=== PATIENT | female | born 1970 | race American Indian/Alaskan Native ===

== ENCOUNTER 2021-02-12 22:51 | Emergency (ER) | payer SELFPAY ==
[2021-02-13] MEDS ORDERED: LACTATED RINGERS 1,000 ML IV ONE (00:41)
--- NOTE | 2021-02-13 00:41 | Emergency Department Report ---
ED General Adult HPI - General Chief complaint: Syncope Stated complaint: SYNCOPE PUI?: No Time Seen by Provider: 02/13/21 00:35 Source: patient, EMS ( EMS documentation not available at time of chart dictation ), RN notes reviewed, old records reviewed Mode of arrival: Stretcher Limitations: No Limitations - History of Present Illness Initial comments: The patient was evaluated in the emergency department for symptoms described in the history of present illness. He/she was evaluated in the context of the global COVID-19 pandemic, which necessitated consideration that the patient might be at risk for infection with the virus that causes COVID-19. Institutional protocols and algorithms that pertain to the evaluation of patients at risk for COVID-19 are in a state of rapid change based on information released by regulatory bodies including the CDC and federal and state organizations. These policies and algorithms were followed during the patient's care in the emergency department. Please note that these policies, procedures and recommendations changed on a rapid basis. The patient is a 50-year-old female. She is not known to myself previously. The patient presents to the ER today with a complaint of syncope/loss of consciousness. The patient states that she was at work, and had completed a vigorous defecation/bowel movement. She reports that shortly after getting up from having a bowel movement, she felt dizzy, lightheaded, and "I fell out." The patient reports that she was at work, and that she fell and hit her head. She does not recall falling or hitting her head. Prior to the event, the patient endorses sinus pressure and pain, but denies severe headache, neck pain, chest pain, abdominal pain, shortness of breath. She denies rectal bleeding, and profuse vaginal bleeding. She consumes cigarettes recreationally, and occasionally consumes marijuana edibles. She states that she has a local primary care doctor, who recently put her on prednisone burst, and albuterol, for "asthma and bronchitis." She denies a personal/family history of DVT and pulmonary embolism. Her father had a history of heart disease. Brother and sister have noncontributory past medical history. Patient states that she has had episodes like this in the past, associated with defecation. She states that she feels back to her baseline at this time. Patient denies travel, surgery, immobilization, oral contraceptive use, , DVT and pulmonary embolism risk factors. -: Sudden Consistency: now resolved Improves with: none Worsens with: other (Defecation) - Related Data Previous Rx's Medication Instructions Recorded Last Taken Type Acetaminophen [Non-Aspirin Extra 500 mg PO Q6HR PRN #30 tablet 02/13/21 Unknown Rx Strength] Fluticasone [Flonase] 1 spray NS QDAY #1 bottle 02/13/21 Unknown Rx Ibuprofen [Motrin] 600 mg PO Q8H PRN #30 tablet 02/13/21 Unknown Rx Metoclopramide [Reglan] 10 mg PO QID PRN #30 tablet 02/13/21 Unknown Rx Allergies Allergy/AdvReac Type Severity Reaction Status Date / Time No Known Allergies Allergy Verified 02/12/21 23:58 ED Review of Systems ROS: Stated complaint: SYNCOPE Other details as noted in HPI Constitutional: denies: diaphoresis Eyes: denies: eye discharge, vision change ENT: denies: epistaxis Respiratory: denies: cough Cardiovascular: syncope. denies: chest pain Gastrointestinal: nausea. denies: abdominal pain, hematemesis, melena, hematochezia Genitourinary: denies: dysuria Neurological: headache. denies: weakness, numbness, paresthesias Psychiatric: denies: anxiety Hematological/Lymphatic: denies: easy bleeding ED Past Medical Hx - Past Medical History Hx Asthma: Yes - Medications Home Medications: Home Medications Medication Instructions Recorded Confirmed Last Taken Type Acetaminophen [Non-Aspirin Extra 500 mg PO Q6HR PRN #30 tablet 02/13/21 Unknown Rx Strength] Fluticasone [Flonase] 1 spray NS QDAY #1 bottle 02/13/21 Unknown Rx Ibuprofen [Motrin] 600 mg PO Q8H PRN #30 tablet 02/13/21 Unknown Rx Metoclopramide [Reglan] 10 mg PO QID PRN #30 tablet 02/13/21 Unknown Rx ED Physical Exam - General Limitations: No Limitations General appearance: alert, in no apparent distress - Head Head exam: Present: atraumatic, normocephalic - Eye Eye exam: Present: normal appearance, PERRL, EOMI, other (Visual acuity intact to finger counting, color perception, reading at a close distance). Absent: nystagmus - ENT ENT exam: Present: normal exam, normal orophraynx, mucous membranes moist, normal external ear exam - Neck Neck exam: Present: normal inspection, full ROM. Absent: tenderness, meningismus - Respiratory Respiratory exam: Present: normal lung sounds bilaterally. Absent: respiratory distress, wheezes, rales, rhonchi, stridor, decreased breath sounds - Cardiovascular Cardiovascular Exam: Present: regular rate, normal rhythm, normal heart sounds. Absent: bradycardia, tachycardia, irregular rhythm, systolic murmur, diastolic murmur, rubs, gallop - GI/Abdominal GI/Abdominal exam: Present: soft. Absent: distended, tenderness, guarding, rebound, rigid, pulsatile mass - Extremities Exam Extremities exam: Present: normal inspection, full ROM, other (2+ pulses noted in the bilateral upper and lower extremities. There is no palpable cord. negative Homans sign. Muscular compartments are soft. The pelvis is stable.). Absent: pedal edema, calf tenderness - Back Exam Back exam: Present: normal inspection, full ROM. Absent: tenderness, CVA tenderness (R), CVA tenderness (L), paraspinal tenderness, vertebral tenderness - Neurological Exam Neurological exam: Present: alert, oriented X3, normal gait, other (There is no facial droop. The tongue is midline. Extraocular movements are intact bilaterally. There is 5 out of 5 strength in bilateral upper and lower extremities. Sensation is intact to light touch bilateral upper and lower extremities. There is no past-pointing. There is no pronator drift.). Absent: motor sensory deficit - Psychiatric Psychiatric exam: Present: normal affect, normal mood - Skin Skin exam: Present: warm, dry, intact, normal color. Absent: rash ED Course Vital Signs 02/12/21 02/13/21 02/13/21 23:58 00:56 01:01 Temperature 98.7 F Pulse Rate 67 56 L 78 Respiratory 16 12 13 Rate Blood Pressure 108/66 Blood Pressure 94/64 [Right] O2 Sat by Pulse 100 99 100 Oximetry 02/13/21 02/13/21 02/13/21 01:15 01:31 01:45 Temperature Pulse Rate 56 L 57 L 54 L Respiratory 15 17 16 Rate Blood Pressure 113/68 Blood Pressure [Right] O2 Sat by Pulse 100 97 98 Oximetry 02/13/21 02/13/21 02/13/21 02:02 02:15 02:31 Temperature Pulse Rate 71 52 L 52 L Respiratory 17 15 12 Rate Blood Pressure 113/68 113/68 110/69 Blood Pressure [Right] O2 Sat by Pulse 100 99 100 Oximetry 02/13/21 02/13/21 02/13/21 02:45 03:01 03:31 Temperature Pulse Rate 62 52 L 49 L Respiratory 15 11 L 13 Rate Blood Pressure 110/69 113/66 116/72 Blood Pressure [Right] O2 Sat by Pulse 100 100 99 Oximetry - Reevaluation(s) Reevaluation #1: 02/13/21 04:50 This patient most likely had a vasovagal event. Bradycardia asymptomatic, blood pressure within normal limits. The patient can follow-up with an outpatient primary care doctor or spa director for this. 02/13/21 04:51 -3 points [place] Syncope Risk Score Very low risk 0.4% risk of 30-day serious adverse event Supportive medications for sinus disease. No indication for antibiotics at this time. 02/13/21 04:52 ED Medical Decision Making - Lab Data Result diagrams: 02/13/21 00:19 02/13/21 00:19 Vital Signs 02/12/21 02/13/21 02/13/21 23:58 00:56 01:01 Temperature 98.7 F Pulse Rate 67 56 L 78 Respiratory 16 12 13 Rate Blood Pressure 108/66 Blood Pressure 94/64 [Right] O2 Sat by Pulse 100 99 100 Oximetry 02/13/21 02/13/21 02/13/21 01:15 01:31 01:45 Temperature Pulse Rate 56 L 57 L 54 L Respiratory 15 17 16 Rate Blood Pressure 113/68 Blood Pressure [Right] O2 Sat by Pulse 100 97 98 Oximetry 02/13/21 02/13/21 02/13/21 02:02 02:15 02:31 Temperature Pulse Rate 71 52 L 52 L Respiratory 17 15 12 Rate Blood Pressure 113/68 113/68 110/69 Blood Pressure [Right] O2 Sat by Pulse 100 99 100 Oximetry 02/13/21 02/13/21 02/13/21 02:45 03:01 03:31 Temperature Pulse Rate 62 52 L 49 L Respiratory 15 11 L 13 Rate Blood Pressure 110/69 113/66 116/72 Blood Pressure [Right] O2 Sat by Pulse 100 100 99 Oximetry Lab Results 02/13/21 02/13/21 02/13/21 Range/Units 00:19 00:19 00:19 WBC 16.6 H (4.5-11.0) K/mm3 RBC 3.91 (3.65-5.03) M/mm3 Hgb 13.1 (10.1-14.3) gm/dl Hct 40.2 (30.3-42.9) % MCV 103 H (79-97) fl MCH 34 H (28-32) pg MCHC 33 (30-34) % RDW 13.1 L (13.2-15.2) % Plt Count 217 (140-440) K/mm3 Lymph % (Auto) 6.1 L (13.4-35.0) % [place] % (Auto) 5.2 (0.0-7.3) % Eos % (Auto) 0.7 (0.0-4.3) % Baso % (Auto) 0.6 (0.0-1.8) % Lymph # (Auto) 1.0 L (1.2-5.4) K/mm3 [place] # (Auto) 0.9 H (0.0-0.8) K/mm3 Eos # (Auto) 0.1 (0.0-0.4) K/mm3 Baso # (Auto) 0.1 (0.0-0.1) K/mm3 Seg Neutrophils % 87.4 H (40.0-70.0) % Seg Neutrophils # 14.5 H (1.8-7.7) K/mm3 PT (12.2-14.9) Sec. INR (0.87-1.13) Sodium 140 (137-145) mmol/L Potassium 3.7 (3.6-5.0) mmol/L Chloride 105.7 (98-107) mmol/L Carbon Dioxide 22 (22-30) mmol/L Anion Gap 16 mmol/L BUN 16 (7-17) mg/dL Creatinine 0.7 (0.6-1.2) mg/dL Estimated GFR > 60 ml/min BUN/Creatinine Ratio 23 % Glucose 100 (65-100) mg/dL Calcium 8.8 (8.4-10.2) mg/dL Magnesium (1.7-2.3) mg/dL Total Bilirubin 0.40 (0.1-1.2) mg/dL AST 15 (5-40) units/L ALT 17 (7-56) units/L Alkaline Phosphatase 64 (35-129) units/L Total Creatine Kinase 148 H (30-135) units/L CK-MB (CK-2) 1.4 (0.0-4.0) ng/mL CK-MB (CK-2) Rel Index 0.9 (0-4) Troponin T < 0.010 (0.00-0.029) ng/mL Total Protein 6.6 (6.3-8.2) g/dL Albumin 4.0 (3.9-5) g/dL Albumin/Globulin Ratio 1.5 % TSH (0.270-4.200) mlU/mL HCG, Qual Negative (Negative) Urine Color (Yellow) Urine Turbidity (Clear) Urine pH (5.0-7.0) Ur Specific [place] (1.003-1.030) Urine Protein (Negative) mg/dL Urine Glucose (UA) (Negative) mg/dL Urine Ketones (Negative) mg/dL Urine Blood (Negative) Urine Nitrite (Negative) Urine Bilirubin (Negative) Urine Urobilinogen (<2.0) mg/dL Ur Leukocyte Esterase (Negative) Urine WBC (Auto) (0.0-6.0) /HPF Urine RBC (Auto) (0.0-6.0) /HPF U Epithel Cells (Auto) (0-13.0) /HPF Hyaline Casts /LPF Urine Mucus /HPF Urine Opiates Screen Urine Methadone Screen Ur Barbiturates Screen Ur Phencyclidine Scrn Ur Amphetamines Screen U Benzodiazepines Scrn Urine Cocaine Screen U Marijuana (THC) Screen Drugs of Abuse Note 02/13/21 02/13/21 02/13/21 Range/Units 00:19 00:19 01:33 WBC (4.5-11.0) K/mm3 RBC (3.65-5.03) M/mm3 Hgb (10.1-14.3) gm/dl Hct (30.3-42.9) % MCV (79-97) fl MCH (28-32) pg MCHC (30-34) % RDW (13.2-15.2) % Plt Count (140-440) K/mm3 Lymph % (Auto) (13.4-35.0) % [place] % (Auto) (0.0-7.3) % Eos % (Auto) (0.0-4.3) % Baso % (Auto) (0.0-1.8) % Lymph # (Auto) (1.2-5.4) K/mm3 [place] # (Auto) (0.0-0.8) K/mm3 Eos # (Auto) (0.0-0.4) K/mm3 Baso # (Auto) (0.0-0.1) K/mm3 Seg Neutrophils % (40.0-70.0) % Seg Neutrophils # (1.8-7.7) K/mm3 PT 12.8 (12.2-14.9) Sec. INR 0.87 (0.87-1.13) Sodium (137-145) mmol/L Potassium (3.6-5.0) mmol/L Chloride (98-107) mmol/L Carbon Dioxide (22-30) mmol/L Anion Gap mmol/L BUN (7-17) mg/dL Creatinine (0.6-1.2) mg/dL Estimated GFR ml/min BUN/Creatinine Ratio % Glucose (65-100) mg/dL Calcium (8.4-10.2) mg/dL Magnesium 1.90 (1.7-2.3) mg/dL Total Bilirubin (0.1-1.2) mg/dL AST (5-40) units/L ALT (7-56) units/L Alkaline Phosphatase (35-129) units/L Total Creatine Kinase 147 H (30-135) units/L CK-MB (CK-2) (0.0-4.0) ng/mL CK-MB (CK-2) Rel Index (0-4) Troponin T (0.00-0.029) ng/mL Total Protein (6.3-8.2) g/dL Albumin (3.9-5) g/dL Albumin/Globulin Ratio % TSH 1.330 (0.270-4.200) mlU/mL HCG, Qual (Negative) Urine Color (Yellow) Urine Turbidity (Clear) Urine pH (5.0-7.0) Ur Specific [place] (1.003-1.030) Urine Protein (Negative) mg/dL Urine Glucose (UA) (Negative) mg/dL Urine Ketones (Negative) mg/dL Urine Blood (Negative) Urine Nitrite (Negative) Urine Bilirubin (Negative) Urine Urobilinogen (<2.0) mg/dL Ur Leukocyte Esterase (Negative) Urine WBC (Auto) (0.0-6.0) /HPF Urine RBC (Auto) (0.0-6.0) /HPF U Epithel Cells (Auto) (0-13.0) /HPF Hyaline Casts /LPF Urine Mucus /HPF Urine Opiates Screen Urine Methadone Screen Ur Barbiturates Screen Ur Phencyclidine Scrn Ur Amphetamines Screen U Benzodiazepines Scrn Urine Cocaine Screen U Marijuana (THC) Screen Drugs of Abuse Note 02/13/21 02/13/21 Range/Units Unknown Unknown WBC (4.5-11.0) K/mm3 RBC (3.65-5.03) M/mm3 Hgb (10.1-14.3) gm/dl Hct (30.3-42.9) % MCV (79-97) fl MCH (28-32) pg MCHC (30-34) % RDW (13.2-15.2) % Plt Count (140-440) K/mm3 Lymph % (Auto) (13.4-35.0) % [place] % (Auto) (0.0-7.3) % Eos % (Auto) (0.0-4.3) % Baso % (Auto) (0.0-1.8) % Lymph # (Auto) (1.2-5.4) K/mm3 [place] # (Auto) (0.0-0.8) K/mm3 Eos # (Auto) (0.0-0.4) K/mm3 Baso # (Auto) (0.0-0.1) K/mm3 Seg Neutrophils % (40.0-70.0) % Seg Neutrophils # (1.8-7.7) K/mm3 PT (12.2-14.9) Sec. INR (0.87-1.13) Sodium (137-145) mmol/L Potassium (3.6-5.0) mmol/L Chloride (98-107) mmol/L Carbon Dioxide (22-30) mmol/L Anion Gap mmol/L BUN (7-17) mg/dL Creatinine (0.6-1.2) mg/dL Estimated GFR ml/min BUN/Creatinine Ratio % Glucose (65-100) mg/dL Calcium (8.4-10.2) mg/dL Magnesium (1.7-2.3) mg/dL Total Bilirubin (0.1-1.2) mg/dL AST (5-40) units/L ALT (7-56) units/L Alkaline Phosphatase (35-129) units/L Total Creatine Kinase (30-135) units/L CK-MB (CK-2) (0.0-4.0) ng/mL CK-MB (CK-2) Rel Index (0-4) Troponin T (0.00-0.029) ng/mL Total Protein (6.3-8.2) g/dL Albumin (3.9-5) g/dL Albumin/Globulin Ratio % TSH (0.270-4.200) mlU/mL HCG, Qual (Negative) Urine Color Yellow (Yellow) Urine Turbidity Clear (Clear) Urine pH 5.0 (5.0-7.0) Ur Specific [place] 1.017 (1.003-1.030) Urine Protein <15 mg/dl (Negative) mg/dL Urine Glucose (UA) Neg (Negative) mg/dL Urine Ketones Neg (Negative) mg/dL Urine Blood Sm (Negative) Urine Nitrite Neg (Negative) Urine Bilirubin Neg (Negative) Urine Urobilinogen < 2.0 (<2.0) mg/dL Ur Leukocyte Esterase Neg (Negative) Urine WBC (Auto) 4.0 (0.0-6.0) /HPF Urine RBC (Auto) 3.0 (0.0-6.0) /HPF U Epithel Cells (Auto) 1.0 (0-13.0) /HPF Hyaline Casts 1 /LPF Urine Mucus Few /HPF Urine Opiates Screen Presumptive negative Urine Methadone Screen Presumptive negative Ur Barbiturates Screen Presumptive negative Ur Phencyclidine Scrn Presumptive negative Ur Amphetamines Screen Presumptive negative U Benzodiazepines Scrn Presumptive negative Urine Cocaine Screen Presumptive negative U Marijuana (THC) Screen Presumptive positive Drugs of Abuse Note Disclamer - EKG Data -: EKG Interpreted by Id EKG shows normal: sinus rhythm Rate: normal - EKG Data When compared to previous EKG there are: previous EKG unavailable 02/13/21 04:40 EKG is interpreted at 12: 37 Sinus rhythm, bradycardia, rate 52 bpm. Normal axis, normal intervals, low voltage. This EKG is not a STEMI. There is no prior EKG available for comparison. - Radiology Data Radiology results: pending, report reviewed, image reviewed CT HEAD WITHOUT CONTRAST INDICATION / CLINICAL INFORMATION: Concussion, Closed Head Injury. TECHNIQUE: All CT scans at this location are performed using CT dose reduction for ALARA by means of automated exposure control. COMPARISON: None available. FINDINGS: No acute intracranial hemorrhage. Ventricles are normal in size without midline shift or mass effect. No extra-axial fluid collection is seen. Diffuse sinus disease is noted. ADDITIONAL FINDINGS: None. IMPRESSION: 1. No acute intracranial abnormality. Diffuse sinus disease Signer Name: Stevie Daly MD Signed: 02/13/2021 3:05 AM Workstation Name: [id number] - Medical Decision Making Differential diagnosis, including but not limited to: Orthostasis, vagal event, closed head injury Assessment and plan: 50-year-old female, who was afebrile, with reassuring vital signs, who is clinically sober, with a GCS of 15, NIH score of 0, who is not cu rrently tachycardic, tachypneic or hypoxic, who denies DVT and pulmonary embolism risk factors, who is low risk by Wells criteria for pulmonary embolism, who is PERC negative, low risk for major adverse cardiac event as per heart score. Low risk for major adverse cardiac event as per Malaysian syncope rule, presenting with syncopal event, closed head injury, associated with defecation. Patient observed in this ER for hours without clinical deterioration. On multiple repeat evaluations, she is noted to be on her cellular phone, not in any acute distress. Neurologic exam benign and nonfocal. Laboratory studies nonactionable. Leukocytosis reviewed and appreciated, patient reports recently completing a steroid burst. Do not suspect invasive bacterial infection at this time. Patient consumes marijuana recreationally, in the form of edibles. However, she is clinically sober at this time. Patient counseled that this is likely an orthostatic and/or vagal event. Patient counseled to discontinue marijuana consumption. Patient further advised that she should not drive or operate motor vehicles for the next 6 months, till cleared to do so by her primary care doctor or spa director. Noncontrast CT scan of the brain was obtained given history of syncope, closed head injury, and retrograde amnesia. Noncontrast CT scan of the brain is negative for acute findings. Patient suitable to be discharged at this time. Return precautions are reviewed. All questions answered Critical care attestation.: If time is entered above; I have spent that time in minutes in the direct care of this critically ill patient, excluding procedure time. ED Disposition Clinical Impression: Closed head injury, Syncope, Sinus disease Disposition: HOME / SELF CARE / HOMELESS Is pt being admited?: No Does the pt Need Aspirin: No Condition: Good Instructions: Syncope (ED), Head Injury, Adult, [id number], Syncope, [id number], Sinusitis, Adult Additional Instructions: Do not drive or operate motor vehicles for the next 6 months, or until cleared to do so by a primary care doctor or spa director. Please follow-up with your primary care doctor or spa director in the next 3 to 5 days for a repeat checkup/evaluation. Avoid consumption of marijuana, tobacco, alcohol, and smoke products. Please drink at least 4 to 6 cups of water on a daily basis. Patient most likely had an episode of vasovagal syncope, associated with defecation. If this happens again in the future, patient should lay down, take 6 long deep breaths, and make certain to drink water. Please return to the emergency room right away with new pain, worsened pain, migration of pain, projectile vomiting, change in mental status, confusion, inability to tolerate liquid feeds, new, worsened or different symptoms not present on the initial emergency room evaluation. Referrals: PRIMARY CARE, [Primary Care Provider] - 3-5 Days [facility] [Provider Group] - 3-5 Days [facility] [Provider Group] - 3-5 Days Forms: Work/School Release Form(ED) Heart Score - HEART Score History: Slightly suspicious EKG: Non-specific Age: 45-65 Risk factors: 1-2 risk factors Troponin: < normal limit HEART Score: 3 - EKG Read Time Time EKG Completed: 12:37 EKG Read Time: 12:37 - Critical Actions Critical Actions: 0-3 pts:0.9-1.7%risk of adverse cardiac event.Candidate for discharge
[2021-02-13 00:49] LABS: Basophils # (Auto) 0.1 K/mm3 (0.0-0.1); Basophils % (Auto) 0.6 % (0.0-1.8); Eosinophils # (Auto) 0.1 K/mm3 (0.0-0.4); Eosinophils % (Auto) 0.7 % (0.0-4.3); Hematocrit 40.2 % (30.3-42.9); Hemoglobin 13.1 gm/dl (10.1-14.3); Lymphocytes % (Auto) 6.1 % (13.4-35.0); Mean Corpuscular HGB Conc 33 % (30-34); Mean Corpuscular Volume 103 fl (79-97); Monocytes # (Auto) 0.9 K/mm3 (0.0-0.8); Monocytes % (Auto) 5.2 % (0.0-7.3); Platelet Count 217 K/mm3 (140-440); Red Blood Count 3.91 M/mm3 (3.65-5.03); Red Cell Distribution Width 13.1 % (13.2-15.2)
[2021-02-13 01:00] LABS: Creatine Kinase MB 1.4 ng/mL (0.0-4.0)
[2021-02-13 01:01] LABS: Alanine Aminotransferase 17 units/L (7-56); Blood Urea Nitrogen 16 mg/dL (7-17); Calcium 8.8 mg/dL (8.4-10.2); Hemolysis Index 17
[2021-02-13 01:09] LABS: BUN/Creatinine Ratio 23
[2021-02-13 02:01] LABS: INR 0.87 (0.87-1.13)
[2021-02-13 02:20] LABS: Amphetamine Screen,Urine PRESUMPTIVE NEGATIVE; Benzodiazepines Screen,Urine PRESUMPTIVE NEGATIVE; Bilirubin,Urine NEG (Negative); Blood,Urine SM (Negative); Cannabinoid Screen,Urine PRESUMPTIVE POSITIVE; Cocaine Screen,Urine PRESUMPTIVE NEGATIVE; Color,Urine Yellow (Yellow); Hyaline Casts,Urine 1 /LPF; Methadone Screen,Urine PRESUMPTIVE NEGATIVE; Mucus,Urine FEW /HPF; Opiate Screen,Urine PRESUMPTIVE NEGATIVE; Protein,Urine <15 mg/dL mg/dL (Negative); Urobilinogen,Urine < 2.0 mg/dL (<2.0)
[2021-02-13] MEDS ORDERED: ACETAMINOPHEN 500 MG TAB PO ONE (02:47)
[2021-02-13] MEDS ORDERED: METOCLOPRAMIDE 10 MG TAB PO ONE (02:47)
--- NOTE | 2021-02-13 04:09 | Cat Scan Report ---
CT HEAD WITHOUT CONTRAST INDICATION / CLINICAL INFORMATION: Concussion, Closed Head Injury. TECHNIQUE: All CT scans at this location are performed using CT dose reduction for ALARA by means of automated e xposure control. COMPARISON: None available. FINDINGS: No acute intracranial hemorrhage. Ventricles are normal in size without midline shift or mass effect. No extra-axial fluid collection is seen. Diffuse sinus disease is noted. ADDITIONAL FINDINGS: None. IMPRESSION: 1. No acute intracranial abnormality. Diffuse sinus disease Signer Name: Stevie Daly MD Signed: 02/13/2021 4:05 AM Workstation Name: [id number]
[2021-02-13 04:45] VITALS: BP 126/70
--- NOTE | 2021-02-13 19:14 | Electrocardiograph Report ---
[facility] Test Date: 2021-02-13 Test Time: 00:37:05 Pat Name: JANETH DE LEON Department: ED Room: Gender: F Veterinary Toxicologist: CHANDA MONTANEZ : 1970 Requested By: ANNETTE BEAN Order Number: [id number] Reading MD: Lupe Enciso Measurements Intervals [place] Rate: 52 P: 12 MT: 156 QRS: 48 QRSD: 84 T: 29 QT: 462 QTc: 429 Interpretive Statements Sinus bradycardia Low voltage, precordial leads No previous ECG available for comparison Electronically Signed On 02-13-2021 19:14:10 EDT by Lupe Enciso
== END 2021-02-13 05:18 | disposition home or self-care (01) ==
LOC: ED 22:51
DX: S09.90XA Unspecified injury of head, initial encounter (principal); J01.90 Acute sinusitis, unspecified; R55 Syncope and collapse; J45.909 Unspecified asthma, uncomplicated; X58.XXXA Exposure to other specified factors, initial encounter; Y93.89 Activity, other specified; Y92.89 Other specified places as the place of occurrence of the external cause; Y99.8 Other external cause status
CPT/HCPCS: 36415; 70450; 80053; 80307; 81001; 82550; 82553; 83735; 84443; 84484; 84703; 85025; 85610; 93005; 96360; 96361; 99284; J7120